=== PATIENT | male | born 1950 | race Asian ===

== ENCOUNTER 2018-09-14 11:57 | Inpatient (IN) | payer OTHER, MEDICARE ==
[~2018-09-14] VITALS: Ht 172.7 cm; Wt 86.7 kg
[2018-09-14] MEDS ORDERED: LOSA25TA6 PO (12:08)
[2018-09-14] MEDS ORDERED: FEXO1TAB25 PO (12:09)
[2018-09-14] MEDS ORDERED: ASPI-515 PO (12:09)
[2018-09-14] MEDS ORDERED: PLEASE ENTER ALLERGIES MC SCH (12:30)
[2018-09-14] MEDS ORDERED: SODIUM CHLORIDE FLUSH 10ML SYR IVF ONE (12:30)
[2018-09-14] MEDS ORDERED: PLEASE ENTER HEIGHT AND WEIGHT MC SCH (12:30)
[2018-09-14 12:35] LABS: TROPONIN I 0.507 ng/mL (0.000-0.045)
[2018-09-14 12:36] LABS: INTERNATIONAL NORMALIZED RATIO 0.95 (0.93-1.1); PROTHROMBIN TIME 9.9 Seconds (9.6-11.5)
[2018-09-14] MEDS ORDERED: ONDANSETRON ODT 4 MG PO PRN (13:00)
[2018-09-14] MEDS ORDERED: LABETALOL 5MG/ML, 20ML IVPush PRN (13:00)
[2018-09-14] MEDS ORDERED: NITROGLYCERIN 0.4 MG/SPRAY SL PRN (13:00)
[2018-09-14] MEDS ORDERED: ONDANSETRON 2MG/ML, 2ML IVPush PRN (13:00)
[2018-09-14] MEDS ORDERED: ACETAMINOPHEN 325 MG TABLET PO PRN (13:00)
[2018-09-14] MEDS ORDERED: hydrALAzine 20 MG/ML, 1ML IVPush PRN (13:00)
[2018-09-14] MEDS ORDERED: GABAPENTIN 300 MG CAPSULE PO PRN (13:00)
[2018-09-14] MEDS ORDERED: NITROGLYCERIN 0.4 MG BOTTLE (25 TABS) SL PRN (13:00)
[2018-09-14] MEDS ORDERED: DOCUSATE 100 MG CAPSULE PO PRN (13:00)
[2018-09-14] MEDS ORDERED: MORPHINE SULFATE 4 MG/ML, 1ML IVPush PRN (13:00)
[2018-09-14] MEDS ORDERED: ENALAPRILAT 1.25 MG/ML, 2ML IVPush PRN (13:00)
[2018-09-14 13:22] LABS: HEMOGLOBIN A1C 6.3 % (4.2-6.3)
[2018-09-14 13:29] VITALS: BP 127/63
[2018-09-14] MEDS ORDERED: SODIUM CHLORIDE 0.9% 1,000 ML IV ONE (16:55)
[2018-09-14 17:40] LABS: CREATININE 1.03 mg/dL (0.7-1.3)
[2018-09-14 17:54] LABS: TROPONIN I 0.491 ng/mL (0.000-0.045)
[2018-09-14 19:28] VITALS: BP 112/79
[2018-09-14] MEDS: ATORVASTATIN 80 MG TABLET PO SCH (21:43)
[2018-09-14] MEDS: ENOXAPARIN 80 MG/0.8 ML SQ SCH (22:51)
[2018-09-15] VITALS (7 sets, daily range): BP systolic 112–144; BP diastolic 74–101
[2018-09-15 05:25] LABS: BASOPHILS # (AUTO) 0.03 x10^3/uL (0-0.1); BASOPHILS % (AUTO) 0 % (0-1); EOSINOPHILS # (AUTO) 0.13 x10^3/uL (0-0.4); EOSINOPHILS % (AUTO) 2 % (1-7); LYMPHOCYTES # (AUTO) 2.62 x10^3/uL (1-3.4); LYMPHOCYTES % (AUTO) 29 % (22-44); MD NO; MEAN CORPUSCULAR HEMOGLOBIN 30.3 pg (27.5-34.5); MEAN CORPUSCULAR HGB CONC 33.7 g/dL (33.2-36.2); MEAN PLATELET VOLUME 7.8 fL (7.4-10.4); MONOCYTES # (AUTO) 0.59 x10^3/uL (0.2-0.8); MONOCYTES % (AUTO) 7 % (2-9); NEUTROPHILS # (AUTO) 5.54 x10^3/uL (1.8-6.8); NEUTROPHILS % (AUTO) 62 % (42-75); PLATELET COUNT 224 x10^3/uL (130-400); RED BLOOD COUNT 4.91 x10^6/uL (4.38-5.82); RED CELL DISTRIBUTION WIDTH 12.8 % (9.4-14.8)
[2018-09-15 05:37] LABS: ANION GAP 6 mmol/L (5-15); CALCIUM 9.8 mg/dL (8.5-10.1); CHLORIDE 110 mmol/L (98-107); CREATININE 0.93 mg/dL (0.7-1.3)
[2018-09-15 05:47] LABS: CHOL/HDL RATIO 4.9; CHOLESTEROL, TOTAL 215 mg/dL (140-239); HDL CHOL % 20 % (26-37); HDL CHOLESTEROL (DIRECT) 44 mg/dL (40-60); LDL CHOLESTEROL,CALCULATED 108 mg/dL (54-169); LDL/HDL RATIO 2.5 (0.5-3.0); TRIGLYCERIDES 314 mg/dL (50-200); VLDL CHOLESTEROL 63 mg/dL (0-25)
[2018-09-15] MEDS: METOPROLOL SUCCINATE 25 MG TAB.ER.24H PO SCH (05:57)
[2018-09-15] MEDS ORDERED: ASPIRIN 325 MG TABLET EC PO SCH (06:00)
[2018-09-15] MEDS: PANTOPROZOLE 40MG TABLET PO SCH (07:47)
[2018-09-15] MEDS: ISOSORBIDE MONONITRATE ER 30 MG TABLET PO SCH (07:47)
[2018-09-15] MEDS: ENOXAPARIN 80 MG/0.8 ML SQ SCH (09:54)
[2018-09-15] MEDS ORDERED: MIDAZOLAM 1 MG/ML, 2ML ONE (11:22)
[2018-09-15] MEDS ORDERED: VERAPAMIL 2.5 MG/ML, 2ML ONE (11:22)
[2018-09-15] MEDS ORDERED: HEPARIN 1,000 UNITS/ML, 10ML ONE (11:22)
[2018-09-15] MEDS ORDERED: FENTANYL PF 100 MCG/2ML ONE (11:22)
[2018-09-15] MEDS ORDERED: NITROGLYCERIN 5 MG/ML, 10ML ONE (11:46)
[2018-09-15] MEDS ORDERED: BIVALIRUDIN 250 MG ONE (12:09)
[2018-09-15] MEDS ORDERED: PRASUGREL 10 MG TABLET ONE (13:05)
[2018-09-15] MEDS ORDERED: BIVALIRUDIN 250 MG in DEXTROSE 5% 100 ML IV SCH (13:13)
[2018-09-15] MEDS: ATORVASTATIN 80 MG TABLET PO SCH (21:08)
[2018-09-16 01:02] VITALS: BP 110/72
[2018-09-16 04:52] LABS: ANION GAP 8 mmol/L (5-15); CALCIUM 9.6 mg/dL (8.5-10.1); CHLORIDE 110 mmol/L (98-107)
[2018-09-16 04:54] LABS: CREATININE 1.03 mg/dL (0.7-1.3)
[2018-09-16 05:58] VITALS: BP 119/76
[2018-09-16] MEDS ORDERED: ASPIRIN 81 MG TABLET EC PO SCH (06:00)
[2018-09-16] MEDS: METOPROLOL SUCCINATE 25 MG TAB.ER.24H PO SCH (06:01)
[2018-09-16 07:16] VITALS: BP 133/85
[2018-09-16] MEDS: PANTOPROZOLE 40MG TABLET PO SCH (08:13)
[2018-09-16] MEDS: ISOSORBIDE MONONITRATE ER 30 MG TABLET PO SCH (08:14)
[2018-09-16] MEDS ORDERED: PRASUGREL 10 MG TABLET PO SCH (09:00)
[2018-09-16] MEDS ORDERED: NITR0.4T SL (09:38)
[2018-09-16] MEDS ORDERED: ONDA4TAB13 PO (09:38)
[2018-09-16] MEDS ORDERED: ATOR-2 PO (09:38)
[2018-09-16] MEDS ORDERED: ASPI-515 PO (09:38)
[2018-09-16] MEDS ORDERED: PRAS10TA4 PO (09:38)
[2018-09-16] MEDS ORDERED: ISOS30TA8 PO (09:38)
[2018-09-16] MEDS ORDERED: LOSA25TA6 PO (09:38)
[2018-09-16] MEDS ORDERED: METO25TA91 PO (09:38)
== END 2018-09-16 11:30 | disposition home or self-care (01) | DRG 247 ==
LOC: ED 12:33 → EDIP 12:41 → 5SO 13:24 → DCLOUNGE 09-16 11:05
PROVIDERS: ADMIT Internal Medicine; ATTEND Internal Medicine
PROC: 027034Z Dilation of Coronary Artery, One Artery with Drug-eluting Intraluminal Device, Percutaneous Approach (ICD-10-PCS; principal; 2018-09-15)
PROC: 02703Z6 Dilation of Coronary Artery, One Artery, Bifurcation, Percutaneous Approach (ICD-10-PCS; 2018-09-15)
PROC: 4A023N7 Measurement of Cardiac Sampling and Pressure, Left Heart, Percutaneous Approach (ICD-10-PCS; 2018-09-15)
PROC: B2111ZZ Fluoroscopy of Multiple Coronary Arteries using Low Osmolar Contrast (ICD-10-PCS; 2018-09-15)
PROC: B2151ZZ Fluoroscopy of Left Heart using Low Osmolar Contrast (ICD-10-PCS; 2018-09-15)
DX: I21.4 Non-ST elevation (NSTEMI) myocardial infarction (principal); I25.110 Atherosclerotic heart disease of native coronary artery with unstable angina pectoris; E78.5 Hyperlipidemia, unspecified; I10 Essential (primary) hypertension; Z87.891 Personal history of nicotine dependence; Z88.0 Allergy status to penicillin
CPT/HCPCS: 36415; 93458; 99285; C9600; 0399T; 80048; 80061; 82565; 83036; 84443; 84484; 85025; 85610; 85730; 93005; 93306; 99156; 99157; C1769; C1894; G0378; J0583; J1644; J1650; J2250; J3010; C1725; C1874; C1887; J7030; Q9967